=== PATIENT | female | born 1960 | race Caucasian/White ===

== ENCOUNTER 2023-10-06 04:55 | Observation (INO) | payer BC ==
[2023-10-06 05:37] LABS: Basophils # (A) 0.1 k/uL (0-0.2); Basophils % (A) 1 %; Eosinophils # (A) 0.2 k/uL (0-0.7); Eosinophils % (A) 4 %; HCT 37.7 % (34.0-46.0); HGB 12.7 gm/dL (11.4-16.0); Lymphocytes # (A) 1.4 k/uL (1.0-4.8); Lymphocytes % (A) 23 %; MCH 30.3 pg (25.0-35.0); MCHC 33.8 g/dL (31.0-37.0); MCV 89.7 fL (80.0-100.0); Mean Platelet Volume 9.3; Monocytes # (A) 0.4 k/uL (0-1.0); Monocytes % (A) 7 %; Neutrophils # (A) 4.1 k/uL (1.3-7.7); Neutrophils % (A) 65 %; Platelet Count 179 k/uL (150-450); RDW 13.1 % (11.5-15.5); WBC 6.3 k/uL (3.8-10.6)
[2023-10-06 05:49] LABS: INR 0.9 (<1.2); Prothrombin Time 10.1 sec (10.0-12.5)
[2023-10-06 05:51] LABS: ALT 22 U/L (4-34); AST 26 U/L (14-36); African American GFR (CKD) >90 (>60 ml/min/1.73 sqM); Albumin 3.6 g/dL (3.5-5.0); Alkaline Phosphatase 69 U/L (38-126); Anion Gap 4 mmol/L; Blood Urea Nitrogen 19 mg/dL (7-17); Carbon Dioxide 27 mmol/L (22-30); Chloride 110 mmol/L (98-107); Glucose 118 mg/dL (74-99); Magnesium 1.8 mg/dL (1.6-2.3); Non-African American GFR(CKD) >90 (>60 ml/min/1.73 sqM); Potassium 3.9 mmol/L (3.5-5.1); Sodium 141 mmol/L (137-145); Total Bilirubin 0.4 mg/dL (0.2-1.3); Total Protein 6.3 g/dL (6.3-8.2)
--- NOTE | 2023-10-06 06:28 | XR ---
EXAMINATION TYPE: XR chest 2V DATE OF EXAM: 10/06/2023 COMPARISON: NONE HISTORY: Chest pain. TECHNIQUE: Frontal and lateral views of the chest are obtained. FINDINGS: There is no focal air space opacity, pleural effusion, or pneumothorax seen. The cardiac silhouette size is within normal limits. The osseous structures are intact. Overlying EKG leads and broad strap are seen. IMPRESSION: No acute process.
--- NOTE | 2023-10-06 07:02 | ED ---
Chest Pain HPI - General Chief Complaint: Chest Pain Stated Complaint: chest pain Time Seen by Provider: 10/06/23 06:07 Source: patient, EMS, RN notes reviewed Mode of arrival: EMS Limitations: no limitations - History of Present Illness Initial Comments: 7D 2-year-old female presents emergency department chief complaint of chest pain. Patient states that woke her up around 3 AM. She states it is in her mid chest and radiated up. Patient states that she initially took some nitro and Tums as she has a history of angina and reflux she states that initially did not help she did take some aspirin at the time was given 2 more aspirin by EMS. Patient states symptoms have now resolved. She has a known 6% blockage last heart catheter 4 years ago. Patient states she does have strong family cardiac history. She does have a history of hyperlipidemia denies diabetes or hypertension. Patient denies any diaphoretic episodes no significant nausea no vomiting no complaints of abdominal pain. - Related Data Allergies Allergy/AdvReac Type Severity Reaction Status Date / Time No Known Allergies Allergy Verified 10/06/23 04:56 Review of Systems ROS Statement: Those systems with pertinent positive or pertinent negative responses have been documented in the HPI. ROS Other: All systems not noted in ROS Statement are negative. EKG Findings - EKG Comments: EKG Findings:: EKG performed at 5: 04 sinus bradycardia rate of 59 LA 144 QRS 81 QT/QTc 394/394 - EKG Results: EKG: interpreted by VENTURA Past Medical History Past Medical History: Chest Pain / Angina, GERD/Reflux, Hyperlipidemia, Thyroid Disorder History of Any Multi-Drug Resistant Organisms: None Reported Past Surgical History: Section, Hernia Repair, Tonsillectomy Additional Past Surgical History / Comment(s): nose Past Psychological History: No Psychological Hx Reported Smoking Status: Former smoker Past Alcohol Use History: Occasional Past Drug Use History: None Reported General Exam Limitations: no limitations General appearance: alert, in no apparent distress Head exam: Present: atraumatic, normocephalic, normal inspection Eye exam: Present: normal appearance, PERRL, EOMI. Absent: scleral icterus, conjunctival injection, periorbital swelling ENT exam: Present: normal exam, normal oropharynx, mucous membranes moist Neck exam: Present: normal inspection, full ROM. Absent: tenderness, meningismus, lymphadenopathy Respiratory exam: Present: normal lung sounds bilaterally. Absent: respiratory distress, wheezes, rales, rhonchi, stridor Cardiovascular Exam: Present: regular rate, normal rhythm, normal heart sounds. Absent: systolic murmur, diastolic murmur, rubs, gallop, clicks GI/Abdominal exam: Present: soft, normal bowel sounds. Absent: distended, tenderness, guarding, rebound, rigid Course Vital Signs 10/06/23 04:56 Temperature 98.3 F Pulse Rate 63 Respiratory 16 Rate Blood Pressure 148/81 O2 Sat by Pulse 99 Oximetry Chest Pain MDM - MDM Was pt. sent in by a medical professional or institution (, PA, MACHINE WOOD SANDER, urgent care, hospital, or prison...) When possible be specific @ -No Did you speak to anyone other than the patient for history (EMS, parent, family, police, friend...)? What history was obtained from this source @ -No Did you review nursing and triage notes (agree or disagree)? Why? @ -I reviewed and agree with nursing and triage notes Were old charts reviewed (outside hosp., previous admission, EMS record, old EKG, old radiological studies, urgent care reports/EKG's, prison records)? Report findings @ -No old charts were reviewed Differential Diagnosis (chest pain, altered mental status, abdominal pain women, abdominal pain men, vaginal bleeding, weakness, fever, dyspnea, syncope, headache, dizziness, GI bleed, back pain, seizure, CVA, palpatations, mental health, musculoskeletal)? @ -Differential Chest Pain: Stable Angina, Unstable Angina, STEMI, NSTEMI Aortic Dissection, Pneumothorax, Musculoskeletal, Esophageal Spasm GERD, Cholecystitis, Pancreatitis, Zoster, this is not meant to be an all-inclusive list. EKG interpreted by me (3pts min.). @ -As above X-rays interpreted by me (1pt min.). @ -Chest x-ray shows no acute cardiopulmonary process. CT interpreted by me (1pt min.). @ -None done U/S interpreted by me (1pt. min.). @ -None done What testing was considered but not performed or refused? (CT, X-rays, U/S, labs)? Why? @ -None What meds were considered but not given or refused? Why? @ -None Did you discuss the management of the patient with other professionals (professionals i.e. , PA, MACHINE WOOD SANDER, lab, RT, psych nurse, social sciences research scientist, chip machine operator, teacher, chief lifestyle officer, rn case mgr)? Give summary @ -[facility] for admission for chest pain rule out Was smoking cessation discussed for >3mins.? @ -No Was critical care preformed (if so, how long)? @ -No Were there social determinants of health that impacted care today? How? (Homelessness, low income, unemployed, alcoholism, drug addiction, transportation, low edu. Level, literacy, decrease access to med. care, care home, rehab)? @ -No Was there de-escalation of care discussed even if they declined (Discuss DNR or withdrawal of care, Hospice)? DNR status @ -No What co-morbidities impacted this encounter? (DM, HTN, Smoking, COPD, CAD, Cancer, CVA, ARF, Chemo, Hep., AIDS, mental health diagnosis, sleep apnea, morbid obesity)? @ -CAD, family cardiac history Was patient admitted / discharged? Hospital course, mention meds given and route, prescriptions, significant lab abnormalities, going to OR and other pertinent info. @ -Admitted patient initial troponin is negative patient's pain has improved after nitro, aspirin. Patient does have significant cardiac history and last heart cath was 4 years ago. Patient will be admitted for repeat troponin, cardi ology evaluation, echocardiogram. Undiagnosed new problem with uncertain prognosis? @ -No Drug Therapy requiring intensive monitoring for toxicity (Heparin, Nitro, Insulin, Cardizem)? @ -No Were any procedures done? @ -No Diagnosis/symptom? @ -Chest pain Acute, or Chronic, or Acute on Chronic? @ -Acute Uncomplicated (without systemic symptoms) or Complicated (systemic symptoms)? @ -uncomplicated Side effects of treatment? @ -No Exacerbation, Progression, or Severe Exacerbation? @ -No Poses a threat to life or bodily function? How? (Chest pain, [place], [place], pneumonia, PE, COPD, DKA, ARF, appy, cholecystitis, CVA, Diverticulitis, Homicidal, Suicidal, threat to staff... and all critical care pts) @ -No Disposition Clinical Impression: Chest pain Disposition: ADMITTED IP TO THIS [facility] Condition: Fair Referrals: None,Stated [Primary Care Provider] - 1-2 days Time of Disposition: 07:10
[2023-10-06] MEDS ORDERED: NITROGLYCERIN SL TABS 0.4 MG TAB SUBLINGUAL PRN ×2 (07:08→11:40)
--- NOTE | 2023-10-06 11:49 | P.HPIM ---
History of Present Illness Patient is a pleasant 62-year-old female came in with complaints of chest pain which started at 3 AM and in the midsternal area nonradiating. Patient has history of angina does take nitro whenever she exercises along with aspirin. Dany parrish had a cardiac catheterization 4 years ago which showed 60% blockage as per the patient. Patient follows up with Ari Nixon, PCP and appliquer. Patient 2 sets of troponins are negative patient chest pain is constant nonexertional, patient usually has exertional angina, no associated diaphoresis lightheadedness or shortness of breath. Patient took multiple aspirins nitros as well as Tums as which helped relieve the chest pain. Patient had nonspecific ST-T wave changes on EKG patient was eval by cardiology they recommended an echocardiogram and a third set of troponin if echocardiogram does not show any wall motion abnormalities and a third set of troponin is not elevated then recommended follow-up with her appliquer as an outpatient. REVIEW OF SYSTEMS: CONSTITUTIONAL: No fever, no malaise, no fatigue. HEENT: No recent visual problems or hearing problems. Denied any sore throat. CARDIOVASCULAR: No orthopnea, PND, no palpitations, no syncope. PULMONARY: No shortness of breath, no cough, no hemoptysis. GASTROINTESTINAL: No diarrhea, no nausea, no vomiting, no abdominal pain. NEUROLOGICAL: No headaches, no weakness, no numbness. HEMATOLOGICAL: Denies any bleeding or petechiae. GENITOURINARY: Denies any burning micturition, frequency, or urgency. MUSCULOSKELETAL/RHEUMATOLOGICAL: Denies any joint pain, swelling, or any muscle pain. ENDOCRINE: Denies any polyuria or polydipsia. The rest of the 14-point review of systems is negative. PHYSICAL EXAMINATION: GENERAL: The patient is alert and oriented x3, not in any acute distress. Well developed, well nourished. HEENT: Pupils are round and equally reacting to light. EOMI. No scleral icterus. No conjunctival pallor. Normocephalic, atraumatic. No pharyngeal erythema. No thyromegaly. CARDIOVASCULAR: S1 and S2 present. No murmurs, rubs, or gallops. PULMONARY: Chest is clear to auscultation, no wheezing or crackles. ABDOMEN: Soft, nontender, nondistended, normoactive bowel sounds. No palpable or ganomegaly. MUSCULOSKELETAL: No joint swelling or deformity. EXTREMITIES: No cyanosis, clubbing, or pedal edema. NEUROLOGICAL: Gross neurological examination did not reveal any focal deficits. SKIN: No rashes. Assessment and plan -Chest pain rule out unstable angina, acute coronary syndromes. If third set of troponin is negative and difficult echocardiogram does not show any wall motion abnormalities patient will be discharged today to follow-up with PCP, her appliquer as an outpatient and patient will continue as needed sublingual nitroglycerin for anginal chest pain. -Gastroesophageal reflux disease -Hyperlipidemia -Hypothyroidism For above-mentioned chronic medical problems patient can resume her home medications. Patient probably will be discharged with above-mentioned plan today Past Medical History Past Medical History: Chest Pain / Angina, GERD/Reflux, Hyperlipidemia, Thyroid Disorder History of Any Multi-Drug Resistant Organisms: None Reported Past Surgical History: Section, Hernia Repair, Tonsillectomy Additional Past Surgical History / Comment(s): nose Past Psychological History: No Psychological Hx Reported Smoking Status: Former smoker Past Alcohol Use History: Occasional Past Drug Use History: None Reported Medications and Allergies Home Medications Medication Instructions Recorded Confirmed Type Aspirin EC [Ecotrin Low Dose] 81 mg PO HS 10/06/23 10/06/23 History Cetirizine HCl [Zyrtec] 10 mg PO DAILY 10/06/23 10/06/23 History Cholecalciferol (Vitamin D3) 50 mcg PO DAILY 10/06/23 10/06/23 History [Vitamin D3 (50 Mcg = 2000 Iu)] Krill/[place]-3/Dha/Epa/Lipids 1 cap PO DAILY 10/06/23 10/06/23 History [Krill Oil 350 mg Softgel] Levothyroxine Sodium [Synthroid] 75 mcg PO DAILY 10/06/23 10/06/23 History Magnesium 250 mg PO DAILY 10/06/23 10/06/23 History Nitroglycerin Sl Tabs [Nitrostat] 0.4 mg SUBLINGUAL Q5M PRN 10/06/23 10/06/23 History Omeprazole [PriLOSEC] 20 mg PO BID-W/MEALS 10/06/23 10/06/23 History Rosuvastatin Calcium [Crestor] 40 mg PO HS 10/06/23 10/06/23 History Ubidecarenone [Co Q-10] 300 mg PO W/SUPPER 10/06/23 10/06/23 History Vitamin B Complex 1 cap PO DAILY 10/06/23 10/06/23 History Vitamin C/Vitamin E/Zinc 1 tab PO DAILY 10/06/23 10/06/23 History diazePAM [Valium] 5 mg PO HS PRN 10/06/23 10/06/23 History Allergies Allergy/AdvReac Type Severity Reaction Status Date / Time No Known Allergies Allergy Verified 10/06/23 08:09 Physical Exam Vitals: Vital Signs Temp Pulse Resp BP Pulse Ox 10/06/23 11:14 61 18 143/80 99 10/06/23 09:00 64 14 141/67 10/06/23 08:00 64 12 145/72 99 10/06/23 04:56 98.3 F 63 16 148/81 99 Intake and Output 10/05/23 10/06/23 10/06/23 22:59 06:59 14:59 Other: Weight 89.811 kg Results CBC & Chem 7: 10/06/23 05:21 10/06/23 05:21 Labs: Abnormal Lab Results - Last 24 Hours (Table) 10/06/23 Range/Units 05:21 Chloride 110 H (98-107) mmol/L BUN 19 H (7-17) mg/dL Glucose 118 H (74-99) mg/dL
--- NOTE | 2023-10-06 11:49 | P.DS ---
Providers Date of admission: 10/06/23 07:10 Attending physician: Deirdre Bello Consults: 10/06/23 07:08 Consult Physician Urgent Consulting Provider: Edinson Lara Consult Reason/Comments: chest pain Do you want consulting provider notified?: Yes Primary care physician: Stated None Hospital Course: Patient is a pleasant 62-year-old female came in with complaints of chest pain which started at 3 AM and in the midsternal area nonradiating. Patient has history of angina does take nitro whenever she exercises along with aspirin. Patient had a cardiac catheterization 4 years ago which showed 60% blockage as per the patient. Patient follows up with Ari Nixon, PCP and computer trainer. Patient 2 sets of troponins are negative patient chest pain is constant nonexertional, patient usually has exertional angina, no associated diaphoresis lightheadedness or shortness of breath. Patient took multiple aspirins nitros as well as Tums as which helped relieve the chest pain. Patient had nonspecific ST-T wave changes on EKG patient was eval by cardiology they recommended an echocardiogram and a third set of troponin if echocardiogram does not show any wall motion abnormalities and a third set of troponin is not elevated then recommended follow-up with her computer trainer as an outpatient. PHYSICAL EXAMINATION: GENERAL: The patient is alert and oriented x3, not in any acute distress. Well developed, well nourished. HEENT: Pupils are round and equally reacting to light. EOMI. No scleral icterus. No conjunctival pallor. Normocephalic, atraumatic. No pharyngeal erythema. No thyromegaly. CARDIOVASCULAR: S1 and S2 present. No murmurs, rubs, or gallops. PULMONARY: Chest is clear to auscultation, no wheezing or crackles. ABDOMEN: Soft, nontender, nondistended, normoactive bowel sounds. No palpable organomegaly. MUSCULOSKELETAL: No joint swelling or deformity. EXTREMITIES: No cyanosis, clubbing, or pedal edema. NEUROLOGICAL: Gross neurological examination did not reveal any focal deficits. SKIN: No rashes. Assessment and plan -Chest pain rule out unstable angina, acute coronary syndromes. If third set of troponin is negative and difficult echocardiogram does not show any wall motion abnormalities patient will be discharged today to follow-up with PCP, her computer trainer as an outpatient and patient will continue as needed sublingual nitroglycerin for anginal chest pain. -Gastroesophageal reflux disease -Hyperlipidemia -Hypothyroidism For above-mentioned chronic medical problems patient can resume her home medications. Patient probably will be discharged with above-mentioned plan today Patient Condition at Discharge: Fair Plan - Discharge Summary New Discharge Prescriptions: No Action Cholecalciferol (Vitamin D3) [Vitamin D3 (50 Mcg = 2000 Iu)] 50 mcg PO DAILY Vitamin C/Vitamin E/Zinc 1 tab PO DAILY Magnesium 250 mg PO DAILY Krill/[place]-3/Dha/Epa/Lipids [Krill Oil 350 mg Softgel] 1 cap PO DAILY diazePAM [Valium] 5 mg PO HS PRN PRN Reason: Anxiety Rosuvastatin Calcium [Crestor] 40 mg PO HS Nitroglycerin Sl Tabs [Nitrostat] 0.4 mg SUBLINGUAL Q5M PRN PRN Reason: Chest Pain Cetirizine HCl [Zyrtec] 10 mg PO DAILY Aspirin EC [Ecotrin Low Dose] 81 mg PO HS Levothyroxine Sodium [Synthroid] 75 mcg PO DAILY Vitamin B Complex 1 cap PO DAILY Omeprazole [PriLOSEC] 20 mg PO BID-W/MEALS Ubidecarenone [Co Q-10] 300 mg PO W/SUPPER Discharge Medication List Aspirin EC [Ecotrin Low Dose] 81 mg PO HS 10/06/23 [History] Cetirizine HCl [Zyrtec] 10 mg PO DAILY 10/06/23 [History] Cholecalciferol (Vitamin D3) [Vitamin D3 (50 Mcg = 2000 Iu)] 50 mcg PO DAILY 10/06/23 [History] Krill/[place]-3/Dha/Epa/Lipids [Krill Oil 350 mg Softgel] 1 cap PO DAILY 10/06/23 [History] Levothyroxine Sodium [Synthroid] 75 mcg PO DAILY 10/06/23 [History] Magnesium 250 mg PO DAILY 10/06/23 [History] Nitroglycerin Sl Tabs [Nitrostat] 0.4 mg SUBLINGUAL Q5M PRN 10/06/23 [History] Omeprazole [PriLOSEC] 20 mg PO BID-W/MEALS 10/06/23 [History] Rosuvastatin Calcium [Crestor] 40 mg PO HS 10/06/23 [History] Ubidecarenone [Co Q-10] 300 mg PO W/SUPPER 10/06/23 [History] Vitamin B Complex 1 cap PO DAILY 10/06/23 [History] Vitamin C/Vitamin E/Zinc 1 tab PO DAILY 10/06/23 [History] diazePAM [Valium] 5 mg PO HS PRN 10/06/23 [History] Follow up Appointment(s)/Referral(s): None,Stated [Primary Care Provider] - 3 Days Discharge Disposition: HOME SELF-CARE
--- NOTE | 2023-10-06 13:21 | P.CRDCN ---
History of Present Illness History of present illness: HISTORY OF PRESENT ILLNESS: This is a 62 year old female with a past medical history significant for nonobstructive CAD, GERD, HLD, and chronic angina. Patient follows with a sales and events coordinator in [place]. We have been asked to see the patient in consultation for chest pain. Patient examined at the bedside in the ER. Patient states she woke up at 5am with CP. She states the pain was in the middle lower portion of the chest and radiated under her left breast. She felt sweaty and reports having diarrhea. She denied any shortness of breath. She states that she took 3 nitro and aspirin at home within a 25-minute period. She also states that she took Tums with little relief. She states the pain lasted for about an hour. She currently denies any chest pain or pressure. She does report having a cardiac catheterization in September 2019 which she was told she had a 60% blockage of the LAD and also an additional blockage in one of her small vessels that was about 80% but did not require intervention and was treated medically. She also states that she had a stress test about a month ago and was normal to her knowledge. She states that she has chronic angina and when she exercises on a treadmill she usually has to take sublingual nitro. She states her primary sales and events coordinator has discussed starting her on metoprolol and Imdur but she is hesitant to do this. She is a non-smoker. She denies any drug use including marijuana. She reports social alcohol use. She reports a family history of CAD and states her dad had an MD at age 45 and at the age of 66. DIAGNOSTICS: - EKG reveals sinus mechanism with nonspecific ST-T wave changes - Chest xray: negative for acute process - Laboratory data: Troponin negative x 2 - Current home cardiac medications include aspirin 81 mg daily and rosuvastatin 40 mg at night. REVIEW OF SYSTEMS: At the time of my exam: CONSTITUTIONAL: Denies fever or chills. HEENT: Denies blurred vision, vision changes, or eye pain. Denies hemoptysis CARDIOVASCULAR: Denies chest pain. Denies orthopnea. Denies PND. Denies palpitations RESPIRATORY: Denies shortness of breath. GASTROINTESTINAL: Denies abdominal pain. Denies nausea or vomiting. HEMATOLOGIC: Denies bleeding disorders. GENITOURINARY: Denies any blood in urine. SKIN: Denies pruitis. Denies rash. PHYSICAL EXAM: VITAL SIGNS: Reviewed. GENERAL: Well-developed in no acute distress. HEENT: Head is normocephalic. Pupils are equal, round. Sclerae anicteric. Mucous membranes of the mouth are moist. Neck supple. No JVD or thyromegaly LUNGS: Respirations even and unlabored. Lungs essentially clear to auscultation bilaterally. HEART: Regular rate and rhythm. S1 and S2 heard. ABDOMEN: Soft. Nondistended. Nontender. EXTREMITIES: Normal range of motion. No clubbing or cyanosis. Peripheral pulses intact. No lower extremity edema NEUROLOGIC: Awake and alert. Oriented x 3. ASSESSMENT: Chest pain, troponin negative x 2 Nonobstructive CAD, per patient Chronic angina Hyperlipidemia Family history of CAD PLAN: An acute coronary event has been ruled out Resume home cardiac medications Discussed options for medical management and follow with her primary sales and events coordinator versus repeat cardiac catheterization during this hospitalization. Patient states she would like to think about it at this time. Will obtain 2D echo to assess cardiac structure and function Obtain records from patients primary sales and events coordinator Discussed adding antianginals such as imdur with the patient. She is declining at this time. Further recommendations pending patient course Nurse practitioner note has been reviewed by physician. Signing provider agrees with the documented findings, assessment, and plan of care documented by MINERAL WOOL INSULATION SUPERVISOR as a scribe. Past Medical History Past Medical History: Chest Pain / Angina, GERD/Reflux, Hyperlipidemia, Thyroid Disorder History of Any Multi-Drug Resistant Organisms: None Reported Past Surgical History: Section, Hernia Repair, Tonsillectomy Additional Past Surgical History / Comment(s): nose Past Psychological History: No Psychological Hx Reported Smoking Status: Former smoker Past Alcohol Use History: Occasional Past Drug Use History: None Reported Medications and Allergies Home Medications Medication Instructions Recorded Confirmed Type Aspirin EC [Ecotrin Low Dose] 81 mg PO HS 10/06/23 10/06/23 History Cetirizine HCl [Zyrtec] 10 mg PO DAILY 10/06/23 10/06/23 History Cholecalciferol (Vitamin D3) 50 mcg PO DAILY 10/06/23 10/06/23 History [Vitamin D3 (50 Mcg = 2000 Iu)] Krill/[place]-3/Dha/Epa/Lipids 1 cap PO DAILY 10/06/23 10/06/23 History [Krill Oil 350 mg Softgel] Levothyroxine Sodium [Synthroid] 75 mcg PO DAILY 10/06/23 10/06/23 History Magnesium 250 mg PO DAILY 10/06/23 10/06/23 History Nitroglycerin Sl Tabs [Nitrostat] 0.4 mg SUBLINGUAL Q5M PRN 10/06/23 10/06/23 History Omeprazole [PriLOSEC] 20 mg PO BID-W/MEALS 10/06/23 10/06/23 History Rosuvastatin Calcium [Crestor] 40 mg PO HS 10/06/23 10/06/23 History Ubidecarenone [Co Q-10] 300 mg PO W/SUPPER 10/06/23 10/06/23 History Vitamin B Complex 1 cap PO DAILY 10/06/23 10/06/23 History Vitamin C/Vitamin E/Zinc 1 tab PO DAILY 10/06/23 10/06/23 History diazePAM [Valium] 5 mg PO HS PRN 10/06/23 10/06/23 History Allergies Allergy/AdvReac Type Severity Reaction Status Date / Time No Known Allergies Allergy Verified 10/06/23 08:09 Physical Exam Vitals: Vital Signs Temp Pulse Resp BP Pulse Ox 10/06/23 09:00 64 14 141/67 10/06/23 08:00 64 12 145/72 99 10/06/23 04:56 98.3 F 63 16 148/81 99 Intake and Output 10/05/23 10/06/23 10/06/23 22:59 06:59 14:59 Other: Weight 89.811 kg Results 10/06/23 05:21 10/06/23 05:21 Cardiac Enzymes 10/06/23 10/06/23 Range/Units 05:21 05:21 AST 26 (14-36) U/L Troponin I <0.012 (0.000-0.034) ng/mL Coagulation 10/06/23 Range/Units 05:21 PT 10.1 (10.0-12.5) sec APTT 22.0 (22.0-30.0) sec CBC 10/06/23 Range/Units 05:21 WBC 6.3 (3.8-10.6) k/uL RBC 4.20 (3.80-5.40) m/uL Hgb 12.7 (11.4-16.0) gm/dL Hct 37.7 (34.0-46.0) % Plt Count 179 (150-450) k/uL Comprehensive Metabolic Panel 10/06/23 Range/Units 05:21 Sodium 141 (137-145) mmol/L Potassium 3.9 (3.5-5.1) mmol/L Chloride 110 H (98-107) mmol/L Carbon Dioxide 27 (22-30) mmol/L BUN 19 H (7-17) mg/dL Creatinine 0.68 (0.52-1.04) mg/dL Glucose 118 H (74-99) mg/dL Calcium 9.0 (8.4-10.2) mg/dL AST 26 (14-36) U/L ALT 22 (4-34) U/L Alkaline Phosphatase 69 (38-126) U/L Total Protein 6.3 (6.3-8.2) g/dL Albumin 3.6 (3.5-5.0) g/dL Current Medications Generic Name Dose Route Start Last Admin Trade Name Freq PRN Reason Stop Dose Admin Aspirin 325 mg 10/07/23 09:00 Aspirin 325 Mg Tab PO DAILY SERENA Nitroglycerin 0.4 mg 10/06/23 07:08 Nitroglycerin Sl Tabs 0.4 Mg Tab SUBLINGUAL Q5M PRN Chest Pain Intake and Output 10/05/23 10/06/23 10/06/23 22:59 06:59 14:59 Other: Weight 89.811 kg 10/06/23 05:21 10/06/23 05:21
[2023-10-06] MEDS: PANTOPRAZOLE 40 MG TABLET PO STA (18:48)
[2023-10-06] MEDS: MAG HYDROX/AL HYDROX/SIMETH 30 ML, HYOSCYAMINE ELIXIR 10 ML PO ONE (18:48)
[2023-10-06] MEDS: ATORVASTATIN 80 MG TAB PO SCH (21:36)
[2023-10-06] MEDS: diazePAM 5 MG TAB PO PRN (22:29)
[2023-10-06 23:27] VITALS: RESP 16
[2023-10-07] MEDS: PANTOPRAZOLE 40 MG TABLET PO SCH (05:46)
[2023-10-07] MEDS: LEVOTHYROXINE 75 MCG TAB PO SCH (05:46)
[2023-10-07] MEDS: ASPIRIN 325 MG TAB PO SCH (08:14)
[2023-10-07] MEDS: LORATADINE 10 MG TAB PO SCH (08:14)
[2023-10-07 08:48] VITALS: BP 130/82; PULSE 57; TEMP 97.9
[2023-10-07 08:59] LABS: Chol/HDL Ratio 3.04 Ratio; LDL Cholesterol,Calculated 69.2 mg/dL (0.0-131.0)
--- NOTE | 2023-10-07 10:19 | P.PN ---
Subjective HISTORY OF PRESENT ILLNESS: This is a 62 year old female with a past medical history significant for nonobstructive CAD, GERD, HLD, and chronic angina. Patient follows with a child welfare specialist in [place]. We have been asked to see the patient in consultation for chest pain. Patient examined at the bedside in the ER. Patient states she woke up at 5am with CP. She states the pain was in the middle lower portion of the chest and radiated under her left breast. She felt sweaty and reports having diarrhea. She denied any shortness of breath. She states that she took 3 nitro and aspirin at home within a 25-minute period. She also states that she took Tums with little relief. She states the pain lasted for about an hour. She currently denies any chest pain or pressure. She does report having a cardiac catheterization in September 2019 which she was told she had a 60% blockage of the LAD and also an additional blockage in one of her small vessels that was about 80% but did not require intervention and was treated medically. She also states damián t she had a stress test about a month ago and was normal to her knowledge. She states that she has chronic angina and when she exercises on a treadmill she usually has to take sublingual nitro. She states her primary child welfare specialist has discussed starting her on metoprolol and Imdur but she is hesitant to do this. She is a non-smoker. She denies any drug use including marijuana. She reports social alcohol use. She reports a family history of CAD and states her dad had an TX at age 45 and at the age of 66. DIAGNOSTICS: - EKG reveals sinus mechanism with nonspecific ST-T wave changes - Chest xray: negative for acute process - Laboratory data: Troponin negative x 2 - Current home cardiac medications include aspirin 81 mg daily and rosuvastatin 40 mg at night. 10/07/2023 Patient examined this morning at the bedside. Patient denies any further episodes of chest pain or pressure. Denies shortness of breath. Vital signs are stable. Echo completed revealing normal LV systolic function abnormalities. PHYSICAL EXAM: VITAL SIGNS: Reviewed. GENERAL: Well-developed in no acute distress. HEENT: Head is normocephalic. Pupils are equal, round. Sclerae anicteric. Mucous membranes of the mouth are moist. Neck supple. No JVD or thyromegaly LUNGS: Respirations even and unlabored. Lungs essentially clear to auscultation bilaterally. HEART: Regular rate and rhythm. S1 and S2 heard. ABDOMEN: Soft. Nondistended. Nontender. EXTREMITIES: Normal range of motion. No clubbing or cyanosis. Peripheral pulses intact. No lower extremity edema NEUROLOGIC: Awake and alert. Oriented x 3. ASSESSMENT: Chest pain, troponin negative x 2 Nonobstructive CAD, per patient Chronic angina Hyperlipidemia Family history of CAD PLAN: Continue current cardiac medications Patient is stable for discharge home today from a cardiac standpoint She is to follow-up postdischarge with her primary child welfare specialist Nurse practitioner note has been reviewed by physician. Signing provider agrees with the documented findings, assessment, and plan of care documented by [employer] OPERATOR as a scribe. Objective - Vital Signs Vital signs: Vital Signs Temp 97.9 F 10/07/23 07:00 Pulse 57 L 10/07/23 07:00 Resp 16 10/07/23 07:00 BP 130/82 10/07/23 07:00 Pulse Ox 97 10/07/23 07:00 FiO2 Intake & Output 10/06/23 10/07/23 10/07/23 18:59 06:59 18:59 Weight 89.811 kg Other: # Voids 2 - Labs CBC & Chem 7: 10/06/23 05:21 10/06/23 05:21
--- NOTE | 2023-10-07 13:27 | CA ---
Transthoracic Echo Report Name: Haydee Garcia Age: 62 Gender: F : 1960 Exam Date: 10/07/2023 07:42 Exam Location: [facility] Ht (in): 64 Wt (lb): 198 Ordering Physician: Ryan Avery PAC Attending/Referring Phys: Gena MICHELLE Special Effects Designer Majo Cooper RDCS Procedure CPT: Indications: Chest Pain Cardiac Hx: Technical Quality: Fair Contrast 1: Total Dose (mL): Contrast 2: Total Dose (mL): MEASUREMENTS (Male / Female) Normal Values 2D ECHO LV Diastolic Diameter PLAX 3.8 cm 4.2 - 5.9 / 3.9 - 5.3 cm LV Systolic Diameter PLAX 3.0 cm IVS Diastolic Thickness 1.0 cm 0.6 - 1.0 / 0.6 - 0.9 cm LVPW Diastolic Thickness 0.9 cm 0.6 - 1.0 / 0.6 - 0.9 cm LV Relative Wall Thickness 0.5 RV Internal Dim ED PLAX 2.7 cm LA Systolic Diameter LX 4.0 cm 3.0 - 4.0 / 2.7 - 3.8 cm LV Diastolic Volume MOD BP 66.1 cm??? 67 - 155 / 56 - 104 cm??? LV Systolic Volume MOD BP 23.2 cm??? 22 - 58 / 19 - 49 cm??? LV Ejection Fraction MOD BP 64.9 % >= 55 % LV Cardiac Index MOD BP 1190.9 cm???/min???m??? LV Diastolic Volume MOD 4C 74.4 cm??? LV Systolic Volume MOD 4C 24.5 cm??? LV Ejection Fraction MOD 4C 67.0 % LV Cardiac Index MOD 4C 1387.1 cm???/min???m??? LV Diastolic Length 4C 7.3 cm LV Systolic Length 4C 5.9 cm LV Diastolic Volume MOD 2C 54.2 cm??? LV Systolic Volume MOD 2C 21.7 cm??? LV Ejection Fraction MOD 2C 60.0 % LV Cardiac Index MOD 2C 903.3 cm???/min???m??? LV Diastolic Length 2C 6.7 cm LV Systolic Length 2C 5.7 cm LA Volume 64.0 cm??? 18 - 58 / 22 - 52 cm??? LA Volume Index 31.2 cm???/m??? 16 - 28 cm???/m??? M-MODE Aortic Root Diameter MM 2.5 cm LA Systolic Diameter MM 3.9 cm LA Ao Ratio MM 1.6 AV Cusp Separation MM 1.6 cm DOPPLER AV Peak Velocity 129.3 cm/s AV Peak Gradient 6.7 mmHg MV Area PHT 2.7 cm??? Mitral E Point Velocity 94.9 cm/s Mitral A Point Velocity 82.5 cm/s Mitral E to A Ratio 1.2 MV Deceleration Time 281.6 ms TR Peak Velocity 126.7 cm/s TR Peak Gradient 6.4 mmHg FINDINGS Left Ventricle Left ventricular ejection fraction is estimated at 55-60 %. Mildly increased septal wall thickness. No obvious regional wall motion abnormalities. Left ventricular cavity size normal. Right Ventricle Normal right ventricular size and function. Right ventricular systolic pressure within normal limits. Right Atrium Normal right atrial size. Left Atrium Mildly increased left atrial diameter. Mildly increased left atrial volume. Mitral Valve Structurally normal mitral valve. Trace mitral regurgitation. Aortic Valve Trileaflet aortic valve. No aortic valve stenosis or regurgitation. Tricuspid Valve Structurally normal tricuspid valve. Trace tricuspid regurgitation. Pulmonic Valve Structurally normal pulmonic valve. No pulmonic stenosis. No pulmonic regurgitation. Pericardium Trace pericardial effusion. Pericardial effusion located posteriorly. Aorta Normal size aortic root and proximal ascending aorta. CONCLUSIONS Left ventricular ejection fraction 55-60% Mildly increased left ventricular wall thickness Mildly dilated left atrium Trace mitral regurgitation Trace tricuspid regurgitation Trace pericardial effusion without tamponade physiology Previewed by: Dr. Joey Grier DO (Electronically Signed) Final Date: 07 Oct 2023 13:26
== END 2023-10-07 12:19 | disposition home or self-care (01) ==
LOC: EC 04:55 → 6NMEDSUR 07:10
PROVIDERS: ADMIT Hospitalist; ATTEND Hospitalist
DX: R07.89 Other chest pain (principal); I25.118 Atherosclerotic heart disease of native coronary artery with other forms of angina pectoris; E78.5 Hyperlipidemia, unspecified; E03.9 Hypothyroidism, unspecified; K21.9 Gastro-esophageal reflux disease without esophagitis; R00.1 Bradycardia, unspecified; N64.4 Mastodynia; R19.7 Diarrhea, unspecified; Z79.82 Long term (current) use of aspirin; Z79.890 Hormone replacement therapy; Z79.899 Other long term (current) drug therapy; Z87.891 Personal history of nicotine dependence
CPT/HCPCS: 99285; 36415; 93005; 93306; 80061; 80053; 84443; 83735; 84484; 85025; 85610; 85730; 71046; G0378 ×2